=== PATIENT | male | born 1975 | race Caucasian/White ===

== ENCOUNTER → 2017-01-16 | Outpatient (CLI) | payer OTHER, BC ==
--- NOTE | 2017-01-16 13:42 | DIAGNOSTIC IMAGING REPORT ---
L-SPINE MIN 4 VIEWS ROUTINE CLINICAL HISTORY: 41 years-old Male presenting with LOWER BACK PAIN S/P TRAMA. TECHNIQUE: Frontal, bilateral oblique, lateral, and coned in lateral views of the lumbar spine were obtained. COMPARISON: None. FINDINGS: No scoliosis. Normal lumbar lordosis. Vertebral bodies maintain normal height and alignment. Mild intervertebral disc height loss at L1-2. The remainder of the intervertebral disc spaces are preserved. Only minimal degenerative change may be present evidenced by osteophytosis at L1-2 and L3-4. No radiographic evidence of osseous neural foraminal narrowing. No radiographic evidence of acute fracture or subluxation. IMPRESSION: No radiographic evidence of acute osseous injury. Minimal degenerative change. Electronically signed by: Dayron Baird M.D. 01/16/2017 1:40 PM Dictated Date/Time: 01/16/2017 1:39 PM
== END | disposition home or self-care (01) ==
LOC: C.RAD1850 13:23
PROVIDERS: ATTEND Nurse Practitioner Adult Health
DX: M54.5 Low back pain (principal)